=== PATIENT | male | born 1975 | race Caucasian/White ===

== ENCOUNTER → 2016-07-02 | Outpatient (CLI) | payer MEDICAID ==
--- NOTE | 2016-07-02 16:28 | MR ---
MRI of the Lumbar Spine (Without Contrast) at 0812 hours Clinical Indications: G89.4, chronic pain syndrome, M51.36, Z98.890, M54.10, radiculopathy. Technique: Sagittal and axial T1 and T2 and sagittal STIR MR sequences of the lumbar spine without co ntrast. Axial imaging from T12-S1. Findings: Lumbar vertebral bodies are of normal height without compression fractures. Conus medulla ris appears normal and ends at L1-L2. T11-T12: Sagittal images demonstrate moderate degenerative disc disease with disc bulge and osteophyt es resulting in mild central canal stenosis and mild bilateral neural foraminal stenosis. No cord com pression. T12-L1: Mild degenerative disc disease and mild bilateral facet arthropathy resulting in mild central canal stenosis without neural foraminal stenosis. L1-L2: Mild bilateral facet arthropathy without stenosis. L2-L3: Mild bilateral facet arthropathy without stenosis. L3-L4: Mild bilateral facet arthropathy without stenosis. L4-L5: Moderate bilateral facet arthropathy and mild disc bulge resulting in moderate to severe bilat eral neural foraminal stenosis and mild central canal stenosis. L5-S1: Previous discectomy, posterior laminectomy, with bilateral L5 and S1 transpedicular screws, wi th grade 1 anterolisthesis 6 mm resulting in mild to moderate bilateral neural foraminal stenosis wit hout central canal stenosis. Impression: 1. L5-S1: Postsurgical changes with grade 1 anterolisthesis resulting in mild to moderate bilateral n eural foraminal stenosis without central canal stenosis. 2. L4-L5: Moderate to severe bilateral neural foraminal stenosis secondary to moderate degenerative d isc disease and circumferential disc bulge. 3. Please see above findings at specific disc levels.
== END ==
LOC: FIMAGING 07:47
PROVIDERS: ATTEND Family Medicine
DX: M48.06 Spinal stenosis, lumbar region (principal); M46.96 Unspecified inflammatory spondylopathy, lumbar region; M51.36 Other intervertebral disc degeneration, lumbar region

== ENCOUNTER 2017-10-26 07:37 | Observation (INO) | payer MEDICAID ==
--- NOTE | 2017-10-26 07:56 | CPEKG ---
Heart Rate: 67 RR Interval: 896 P-R Interval: 128 QRSD Interval: 98 QT Interval: 392 QTC Interval: 414 P Garrett: 34 QRS Garrett: -60 T Wave Garrett: 39 EKG Severity - ABNORMAL ECG - EKG Impression: SINUS RHYTHM EKG Impression: LAD, CONSIDER LEFT ANTERIOR FASCICULAR BLOCK Electronically Signed By: Ananda Zhu 26-Oct-2017 08:20:19
--- NOTE | 2017-10-26 08:11 | EDPHY ---
H & P Time Seen by Provider: 10/26/17 08:10 HPI/ROS: Chief complaint. Chest pain HPI. 42-year-old male presents emergency department with chest discomfort for 1 day. It began yesterday while he was doing yd work. It has been continuous. It is described as left anterior without radiation. Does have some tingling to his left hand. He describes as pressure. No injury. Discomfort is worse with deep breathing and movement. No leg symptoms, fever, cough. No similar symptoms previously. ROS Constitutional. no fever/chills, no weakness Eyes. no problems with vision ENT. no sore throat, no nasal drainage Cardiovascular. Chest pain Respiratory. no shortness of breath, no cough Abdominal. no abdominal pain, no nausea/vomiting, no diarrhea . no problems urinating MS. no calf pain/swelling, no neck/back pain, no joint pain Skin. no rash Lymph. no swollen glands Neuro. no headache, no dizziness, no difficulty walking or with speech Past Medical/Surgical History: Thyroid issue Family history father of an MN at age 53 Social History: , nonsmoker, no alcohol Smoking Status: Never smoked Physical Exam: General Appearance: Alert well-developed male moderate distress vital signs are stable Eyes: Pupils equal and round no pallor or injection. ENT, Mouth: Mucous membranes are moist. Respiratory: There are no retractions, lungs are clear to auscultation. Cardiovascular: Regular rate and rhythm. Gastrointestinal: Abdomen is soft and nontender, no masses, bowel sounds normal. Neurological: Awake and alert, sensory and motor exams grossly normal. Skin: Warm and dry, no rashes. Musculoskeletal: Neck is supple nontender. Extremities symmetrical, full range of motion. Psychiatric: Patient is oriented X 3, there is no agitation. Constitutional: Initial Vital Signs Temperature (C) 36.5 C 10/26/17 07:43 Heart Rate 79 10/26/17 07:43 Respiratory Rate 16 10/26/17 07:43 Blood Pressure 140/77 H 10/26/17 07:43 O2 Sat (%) 100 10/26/17 07:43 O2 Delivery Mode Room Air Allergies/Adverse Reactions: No Known Allergies Allergy (Unverified 10/26/17 07:42) Home Medications: Medication Instructions Recorded Ibuprofen [Motrin (*)] 600 mg PO TID 10/26/17 Medical Decision Making - Diagnostics EKG Interpretation: EKG interpreted by me shows normal sinus rhythm normal interval. There is left axis deviation. QRS shows left anterior fascicular block. No significant ST elevation or depression. No arrhythmia. The rate is 67 Imaging Results: Imaging Impressions Chest X-Ray 10/26/17 08:19 Impression: Clear lungs. Negative portable chest. Procedures: IV normal saline, monitor IV Toradol ED Course/Re-evaluation: Re-evaluation 9:10 a.m.. Patient is stable and feeling somewhat better. The patient and I discussed imaging lab EKG findings. Serial evaluations and patient continues to have chest discomfort of moderate severity. No significant improvement after Toradol and GI cocktail. The patient and I discussed imaging and lab results. We discussed treatment plan including recommendation for admission. He expresses understanding and agreement. I consulted and discussed the case with Dr. Kaufman, hospitalist, who agrees to the admission Differential Diagnosis: Chest pain for 24 hr with negative D-dimer and 2 normal troponins. This may be musculoskeletal. However the patient has ongoing chest discomfort, lives about an hour and a half away from the hospital and has strep positive family history with his father dying of MN at age 53. Plan will be admission and observation. - Data Points Laboratory Results: Laboratory Results 10/26/17 07:58 10/26/17 07:58 10/26/17 10/26/17 10/26/17 09:42 07:58 07:58 WBC RBC Hgb Hct MCV MCH MCHC RDW Plt Count MPV Neut % (Auto) Lymph % (Auto) [place] % (Auto) Eos % (Auto) Baso % (Auto) Nucleat RBC Rel Count Absolute Neuts (auto) Absolute Lymphs (auto) Absolute Monos (auto) Absolute Eos (auto) Absolute Basos (auto) Absolute Nucleated RBC Immature Gran % Immature Gran # D-Dimer < 0.27 ug/mLFEU ug/mLFEU (0.00-0.50) Sodium 144 mEq/L mEq/L (135-145) Potassium 4.7 mEq/L mEq/L (3.3-5.0) Chloride 112 mEq/L H mEq/L (97-110) Carbon Dioxide 21 mEq/l L mEq/l (22-31) Anion Gap 11 mEq/L mEq/L (8-16) BUN 18 mg/dL mg/dL (7-23) Creatinine 0.9 mg/dL mg/dL (0.7-1.3) Estimated GFR > 60 Glucose 83 mg/dL mg/dL (70-100) Calcium 9.9 mg/dL mg/dL (8.5-10.4) Troponin I < 0.012 ng/mL ng/mL < 0.012 ng/mL ng/mL (0.000-0.034) (0.000-0.034) 10/26/17 07:58 WBC 8.11 10^3/uL 10^3/uL (3.80-9.50) RBC 5.07 10^6/uL 10^6/uL (4.40-6.38) Hgb 15.9 g/dL g/dL (13.7-17.5) Hct 45.4 % % (40.0-51.0) MCV 89.5 fL fL (81.5-99.8) MCH 31.4 pg pg (27.9-34.1) MCHC 35.0 g/dL g/dL (32.4-36.7) RDW 12.4 % % (11.5-15.2) Plt Count 209 10^3/uL 10^3/uL (150-400) MPV 8.9 fL fL (8.7-11.7) Neut % (Auto) 63.5 % % (39.3-74.2) Lymph % (Auto) 25.4 % % (15.0-45.0) [place] % (Auto) 7.6 % % (4.5-13.0) Eos % (Auto) 2.5 % % (0.6-7.6) Baso % (Auto) 0.9 % % (0.3-1.7) Nucleat RBC Rel Count 0.0 % % (0.0-0.2) Absolute Neuts (auto) 5.15 10^3/uL 10^3/uL (1.70-6.50) Absolute Lymphs (auto) 2.06 10^3/uL 10^3/uL (1.00-3.00) Absolute Monos (auto) 0.62 10^3/uL 10^3/uL (0.30-0.80) Absolute Eos (auto) 0.20 10^3/uL 10^3/uL (0.03-0.40) Absolute Basos (auto) 0.07 10^3/uL 10^3/uL (0.02-0.10) Absolute Nucleated RBC 0.00 10^3/uL 10^3/uL (0-0.01) Immature Gran % 0.1 % % (0.0-1.1) Immature Gran # 0.01 10^3/uL 10^3/uL (0.00-0.10) D-Dimer Sodium Potassium Chloride Carbon Dioxide Anion Gap BUN Creatinine Estimated GFR Glucose Calcium Troponin I Medications Given: Discontinued Medications Al Hydroxide/Mg Hydroxide (Maalox Susp) 30 ml PO EDNOW ONE Stop: 10/26/17 10:07 Last Admin: 10/26/17 10:10 Dose: 30 ml Aspirin (Aspirin) 324 mg PO EDNOW ONE Stop: 10/26/17 08:19 Last Admin: 10/26/17 08:28 Dose: 324 mg Hyoscyamine Sulfate (Levsin, Hyomax-Sl) 0.125 mg PO EDNOW ONE Stop: 10/26/17 10:08 Last Admin: 10/26/17 10:09 Dose: 0.125 mg Ketorolac Tromethamine (Toradol) 15 mg IVP EDNOW ONE Stop: 10/26/17 08:44 Last Admin: 10/26/17 08:45 Dose: 15 mg Lidocaine (Lidocaine 2% Viscous) 5 ml PO EDNOW ONE Stop: 10/26/17 10:08 Last Admin: 10/26/17 10:09 Dose: 15 ml Departure - Departure Disposition: [facility] Inpatient Acute Clinical Impression: Chest pain Qualifiers: Chest pain type: unspecified Qualified Code(s): R07.9 - Chest pain, unspecified Condition: Good
[2017-10-26] MEDS ORDERED: ASPIRIN 81 MG CHEWABLE TAB PO ONE (08:18)
[2017-10-26 08:28] LABS: PLATELET COUNT 209 10^3/uL (150-400)
[2017-10-26] MEDS ORDERED: KETOROLAC 15 MG/1 ML SDV IVP ONE (08:43)
[2017-10-26] MEDS ORDERED: MAG HYDROX/AL HYDROX/SIMETH 30 ML UDCUP PO ONE (10:06)
[2017-10-26] MEDS ORDERED: LIDOCAINE 2% VISCOUS 15 ML UDCUP PO ONE (10:07)
[2017-10-26] MEDS ORDERED: HYOSCYAMINE SULFATE 0.125 MG TAB PO ONE (10:07)
[2017-10-26] MEDS ORDERED: ZOLPIDEM TARTRATE 5 MG TAB PO PRN (12:34)
[2017-10-26] MEDS ORDERED: ONDANSETRON DISINTEGRATING 4 MG TAB PO PRN (12:34)
[2017-10-26] MEDS ORDERED: ACETAMINOPHEN 325 MG TAB PO PRN (12:34)
[2017-10-26] MEDS ORDERED: ONDANSETRON 4 MG/2 ML VIAL IVP PRN (12:34)
[2017-10-26] MEDS: COLCHICINE 0.6 MG CAP/TAB PO SCH ×2 (12:59→20:24)
[2017-10-26] MEDS: traMADol 50 MG TAB PO PRN ×2 (12:59→19:16)
--- NOTE | 2017-10-26 13:00 | CPEKG ---
Heart Rate: 53 RR Interval: 1132 P-R Interval: 144 QRSD Interval: 102 QT Interval: 432 QTC Interval: 406 P [place]: 58 QRS [place]: -29 T Wave [place]: 35 EKG Severity - ABNORMAL ECG - EKG Impression: SINUS RHYTHM EKG Impression: INCOMPLETE RBBB AND LAFB Electronically Signed By: Chun Mack 26-Oct-2017 16:22:12
--- NOTE | 2017-10-26 13:15 | GHP ---
[f rep st] HISTORY AND PHYSICAL DATE OF ADMISSION: 10/26/2017 CHIEF COMPLAINT: Chest pain. HISTORY OF PRESENT ILLNESS: The patient is a 42-year-old man who comes in with chest pain. His ches t pain started abruptly yesterday after he was doing some yard work. It started in his left anterior chest and has been fairly constant since then. He does note that the pain comes and goes in intensi ty but has never completely gone away. It is not associated with lightheadedness, palpitations, dizz iness, or diaphoresis. He does have some mild intermittent shortness of breath, however. The pain d oes not radiate. Overnight, he noted some tingling in his hands and felt like the pain was getting w orse today, so that he feels with the worsening pain, he came in for further evaluation. He is quite anxious because his father of an WA at age 53 and he thinks his mother of a heart issue in her 30s. He denies any recent viral illnesses. He has had no significant weight changes, although over the year or 2, has gained some weight. He has had no fevers, chills, no abdominal complaints. No uri nary symptoms. No calf pain or swelling. No other musculoskeletal issues. There was no trauma. He has had some mild diarrhea for a day or 2. REVIEW OF SYSTEMS: Comprehensive review of systems was done with pertinent positives present in HPI. PAST MEDICAL HISTORY: He has some chronic back issues, for which he takes ibuprofen. PAST SURGICAL HISTORY: It sounds like he had a fusion in his back. MEDICATIONS: Ibuprofen as needed. ALLERGIES: No known drug allergies. FAMILY HISTORY: Father of an WA at age 53. He also had diabetes. Mother in her 30s, he b elieves of a heart issue; he is not sure what. He has a brother and 2 sisters without any medical is sues. SOCIAL HISTORY: He is . He has 2 children. 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 He quit smoking 6 years ago and smoked for about 17 years prior to that. Alcohol, he has i ncreased his alcohol use lately to about 2 beers per day due to increased anxiety. Marijuana use, he uses 3-5 g per day. PHYSICAL EXAM: VITAL SIGNS: He has been afebrile. Heart rate 64, blood pressure 145/84, respiratio ns 18, he is 100% on room air. GENERAL: He is a very pleasant 42-year-old man who looks somewhat an xious. He is alert and oriented. His speech is clear and fluent. HEENT: Atraumatic. Pupils equal . Extraocular movements intact. Mucous membranes are moist. NECK: Supple. LYMPH NODES: No cervi elsa or axillary lymph nodes. HEART: Regular without murmur, gallop, or rub. LUNGS: Clear to auscu ltation without wheeze, rhonchi, or rales. ABDOMEN: Soft. No masses noted. EXTREMITIES: No clubb ing, cyanosis, or edema. MUSCULOSKELETAL: No joint deformities or effusions. No calf tenderness. NEUROLOGIC: Speech is fluent. He is alert and oriented. He is moving all 4 extremities equally. P SYCHIATRIC: His mood is fairly normal. Affect is just slightly anxious. LABORATORY DATA: CBC is within normal limits. Chemistries are normal except for slightly low CO2 of 21. Initial 2 troponins were negative. Chest x-ray personally reviewed and interpreted is normal. Electrocardiogram was a poor study but showed sinus rhythm, no ischemic changes. ASSESSMENT: A 42-year-old healthy man comes in with constant chest pain for the last 24 hours which has increased and decreased in intensity over that time. He has had 2 negative troponins and no isch emia on EKG, despite having ongoing chest pain. I suspect that his pain is likely secondary to peric arditis. PLAN: Admit for observation. For pain control, start him on Toradol 15 mg every 6 hours. Start col chicine 0.6 mg twice daily. Check echocardiogram. Repeat EKG today and tomorrow morning and rule ou t with serial enzymes. If he does well overnight and is pain-free, could consider a stress test, giv en his family history. Otherwise, that can be done as an outpatient if his serology and EKGs continu e to be normal. /[id number]/MODL
--- NOTE | 2017-10-26 17:15 | ASMTCMCOM ---
CM Note CM Note Notes: 42yr old male admitted for CP. He has a Hx of chronic back pain, anxiety and was a smoker, uses THC regularly. 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 Having a Hrt work-up. CM not anticipating patient will have discharge needs. Date Signed: 10/26/2017 04:09 PM Electronically Signed By:Carmel Weiss LCSW
[2017-10-26] MEDS: KETOROLAC 15 MG/1 ML SDV IVP SCH (19:12)
[2017-10-26] MEDS: HYDROCODONE/APAP 5/325 TAB PO PRN (20:24)
[2017-10-27] MEDS: KETOROLAC 15 MG/1 ML SDV IVP SCH ×3 (02:36→13:37)
[2017-10-27] MEDS: HYDROCODONE/APAP 5/325 TAB PO PRN (02:39)
[2017-10-27] MEDS: COLCHICINE 0.6 MG CAP/TAB PO SCH (08:53)
[2017-10-27] MEDS: traMADol 50 MG TAB PO PRN (08:58)
--- NOTE | 2017-10-27 09:07 | CPEKG ---
Heart Rate: 48 RR Interval: 1250 P-R Interval: 152 QRSD Interval: 120 QT Interval: 452 QTC Interval: 404 P [place]: 58 QRS [place]: -74 T Wave [place]: 42 EKG Severity - ABNORMAL ECG - EKG Impression: SINUS BRADYCARDIA EKG Impression: NONSPECIFIC IVCD WITH LAD EKG Impression: CONSIDER ANTEROSEPTAL INFARCT Electronically Signed By: Chun Mack 28-Oct-2017 08:30:23
--- NOTE | 2017-10-27 11:02 | ECHO ---
[email or web address] [address] [address] Main: [phone] Fax: Transthoracic Echocardiogram Name: MELISSA NAIR MR#: [id number] Study Date: 10/26/2017 Study Time: 02:21 PM Date of : 1975 Age: 42 year(s) Height: 175.3 cm (69 in.) Weight: 79.38 kg (175 lb.) BSA: 1.95 m2 Gender: Male Examination: Echo Indication: Chest Pain Image Quality: Adequate Contrast: Requested by: Janice Kaufman BP: 144 mmHg/80 mmHg Heart Rate: Rhythm: Indication: Chest Pain Procedure Staff [employer] Officer: Alanis Barr [facility] Reading Physician: Ignacio Nascimento MD Requesting Provider: Conclusions: Normal size left ventricle. No LV hypertrophy. Normal global systolic LV function. EF is 59 %. No regional wall motion abnormality. Normal diastolic LV function. Mild mitral valve regurgitation is present. Mild aortic valve regurgitation is present. Mild tricuspid regurgitation is present. The pulmonary artery pressure is normal. Right ventricular systolic pressure measures 24mmHg. There is no pulmonic regurgitation seen. Normal size aortic root measuring 3.2 cm. No previous available Measurements: Chambers Valvular Assessment AV/MV Valvular Assessment TV/PV Normal Normal Normal Name Value Range Name Value Range Name Value Range Ao Delia (2D): 3.2 cm (1.4 cm-2.6 AV meanP mmHg ( - ) TR Vmax: 2.17 mm/s ( - ) cm) ZEN (VTI): 2.6 cm ( - ) TR PGmax: 19 mmHg ( - ) IVSd (2D): 0.9 cm (0.6 cm-1.1 MV E Vmax: 0.70 m/s ( - ) syst. PAP: 24 mmHg ( - ) cm) MV A Vmax: 0.50 m/s ( - ) PV Vmax: 0.69 m/s (0.6 m/s-0.9 LVDd (2D): 5.1 cm (4.2 cm-5.9 MV E/A: 1.40 ( - ) m/s) cm) MV PHT: 0.074 s ( - ) PV PGmax: 2 mmHg ( - ) LVDs (2D): 3.4 cm (2.1 cm-4 cm) MVA (PHT): 3.0 s ( - ) LVPWd (2D): 1.0 cm (0.6 cm-1 cm) LVOTd 2.1 cm 2.1 cm mm Patient: MELISSA NAIR Study Date: 10/26/2017 Page 1 of 2 02:21 PM LVEF (BP): 59 % (>=55 %) RVDd(2D): 3.3 cm (1.9 cm-3.8 cmmm) Continued Measurements: Chambers Valvular Assessment AV/MV Valvular Assessment TV/PV Name Value Name Value Name Value LADs: 3.5 cm MV DecTime: 218 m/s CVP (est.): 5 mmHg LADs Lon.8 cm MV E' Septal: 0.07 m/s LA Area: 14.7 cm2 MV E/E' Septal: 9.50 LA Volume: 49 ml MV E/E' Lateral: 4.90 LA Volume Index: 25.1 ml/m2 RA Area: 16.4 cm2 Additional Vessels Name Value Ao Ascendin.0 cm Inferior Vena Cava: 2.0 cm Findings: Left Ventricle: Normal size left ventricle. No LV hypertrophy. Normal global systolic LV function. EF is 59 %. No regional wall motion abnormality. Normal diastolic LV function. Right Ventricle: Normal size right ventricle. Normal RV function. Left Atrium: The left atrium is normal in size. Right Atrium: The right atrium is normal in size. Mitral Valve: The mitral valve is normal in appearance and function. Mild mitral valve regurgitation is present. No mitral stenosis is present. Aortic Valve: The aortic valve is normal in appearance and function. Mild aortic valve regurgitation is present. No aortic valve stenosis is present. Tricuspid Valve: The tricuspid valve is normal in appearance and function. Mild tricuspid regurgitation is present. The pulmonary artery pressure is normal. Right ventricular systolic pressure measures 24mmHg. Pulmonic Valve: The pulmonic valve is normal in appearance and function. There is no pulmonic regurgitation seen. Aorta: The aorta is normal. Normal size aortic root measuring 3.2 cm. Normal size ascending aorta measuring 3.0 cm. IVC: The IVC is normal sized. Pericardium: No pericardial effusion. No pleural effusion. (No Signature Object) Patient: MELISSA NAIR Study Date: 10/26/2017 Page 2 of 2 02:21 PM [id number]
[2017-10-27 11:45] VITALS: BP 137/81
--- NOTE | 2017-10-27 12:20 | CPR ---
[f rep st] NONINVASIVE CARDIAC PROCEDURE REPORT DATE OF PROCEDURE: 10/27/2017 PROCEDURE PERFORMED: Exercise treadmill test. INDICATION: The patient is a 42-year-old male who woke with chest pressure and mild shortness of shorty ath. His discomfort persisted for at least 12 hours, and therefore, he presented to the hospital. I t resolved on its own. [place] is very active alysha [place] on a regul ar basis. He denies any exertional chest discomfort. His risk factors for coronary artery disease i nclude a family history of coronary disease. His father of an DC at the age of 52. DETAILS OF PROCEDURE: Consent was obtained, and the patient was placed on continuous telemetry. His resting EKG reveals normal sinus rhythm with an incomplete right bundle branch block. He exercised on the treadmill for 9 minutes without any associated symptoms. Exercise portion of the study was di scontinued secondary to maximum effort. His heart rate peaked at 153 beats per minute which is great er than 85% of his age predicted maximum heart rate. He remained in normal sinus rhythm without any ST-T wave changes to suggest ischemia. In the recovery phase, his rhythm went into sinus arrhythmia. His blood pressure at rest was elevated at 150/80 and peaked at 186/80. 4 minutes into recovery, h is blood pressure was down to 142/70. His heart rate returned to baseline within 2 minutes of recove ry. PLAN: Low risk exercise treadmill test. /[id number]/MODL
--- NOTE | 2017-10-27 14:06 | ASMTLACE ---
MARLENA Length of stay for Answers: 1 day current admission Acuity / Level of Answers: No Care: Did the patient have an inpatient admission? Comorbidities - select Answers: Other Notes: CP all that apply # of Emergency department Answers: 1-2 visits in the last 6 months Social determinants Answers: History of substance abuse (ETOH, street drugs, prescription drugs, etc.) Mental health diagnosis (anxiety, depression, pers onality disorders, etc.) Score: 9 Date Signed: 10/27/2017 02:06 PM Electronically Signed By:Yohana Sams RN
--- NOTE | 2017-10-27 14:13 | ASMTCMCOM ---
CM Note CM Note Notes: Chart reviewed. Patient medically cleared for discharge. No needs identified. CM available should other needs arise. Plan; Home Independent. Date Signed: 10/27/2017 02:13 PM Electronically Signed By:Yohana Sams RN
--- NOTE | 2017-10-27 19:46 | PDDCSUM ---
Discharge Summary Discharge Summary: DISCHARGE SUMMARY FOLLOW-UP ITEMS: Perform outpatient 30 day event monitor Establish primary care DATE OF ADMISSION: 10/26/2017 DATE OF DISCHARGE: 10/27/2017 DISCHARGE DIAGNOSES: 1. Acute chest pain 2. Possible acute pericarditis 3. Suspected acute anxiety and stress CONSULTATIONS: None PROCEDURES / IMAGING: Exercise stress test demonstrating no abnormalities, echocardiogram demonstrating no abnormalities CHIEF COMPLAINT: Acute chest pain SUBJECTIVE: Patient is feeling well at time discharge, his chest pain has resolved PHYSICAL EXAM ON DISCHARGE: Systolic blood pressure is 110-140, heart rate 50-60, afebrile overnight, satting on room air, alert awake oriented x3, lungs are clear to auscultation bilaterally, heart rhythm is regular, no murmurs rubs or gallops appreciated, alert awake oriented x3 LABS ON DISCHARGE: D-dimer negative, troponin negative HOSPITAL COURSE BY PROBLEM: The patient presented with acute chest pain most likely atypical and secondary to acute stress and anxiety. He was ruled out for acute coronary syndrome with negative troponin, ruled out for pulmonary embolism with negative D-dimer, ruled out for obstructive coronary disease with negative exercise stress test and ruled out for significant pericardial effusion with echocardiogram. Given the patient's presenting symptoms and history obtained by his initial providers , there was consideration of possible pericarditis, and he was given colchicine and Toradol. He reports that his symptoms abated after receiving these medications. It is certainly possible that there could be a pericardiac component, and I have recommended ongoing use of indomethacin for 1 week, to gauge whether symptoms completely natali. I recommend that he follow up with a primary care provider and that he have an outpatient 30 day event monitor to ensure that his symptoms are not secondary to an intermittent tachyarrhythmia induced by stress and anxiety. There appears to be a strong element of stress and anxiety related to his intermittent symptoms, and I recommended the patient continue this exploration of his symptoms with his primary care provider. DISCHARGE MEDICATIONS: Please see official discharge medication reconciliation sheet in chart , continue home medications with the addition of indomethacin 75 mg daily. DISCHARGE INSTRUCTIONS: Please follow up with primary care provider and arrange outpatient 30 day event monitor.
== END 2017-10-27 15:05 | disposition home or self-care (01) ==
LOC: F2W 11:52
PROVIDERS: ADMIT Internal Medicine; ATTEND Internal Medicine
DX: R07.9 Chest pain, unspecified (principal); R94.31 Abnormal electrocardiogram [ECG] [EKG]; Z79.82 Long term (current) use of aspirin; Z82.49 Family history of ischemic heart disease and other diseases of the circulatory system; Z87.891 Personal history of nicotine dependence; Z73.3 Stress, not elsewhere classified
CPT/HCPCS: 71045; 93005; 93017; 93306; 96374; 99285; G0378; J1885